=== PATIENT | male | born 1935 | race African-American/Black ===

== ENCOUNTER → 2019-06-01 | Outpatient (CLI) | payer MEDICARE ==
[~2019-06-01] MED LIST: IOPAMIDOL 370 MG/ML 200 ML INFUS..BTL INJ ONE; SODIUM CHLORIDE 0.9% 50ML 50 ML ONE
[2019-06-01 11:31] LABS: BLOOD UREA NITROGEN 18 mg/dL (7-26); BUN/CREATININE RATIO 20 (6-25); CREATININE, SERUM 0.92 mg/dL (0.72-1.25); EST GLOMERULAR FILTRATION RATE > 60 ML/MIN (60-)
--- NOTE | 2019-06-01 13:33 | Diagnostic Imaging Report ---
EXAM: CT Pelvis WITH contrast INDICATION: ^[id number] ^1225 ^MALIGNANT NEOPLASM OF PROSTATE COMPARISON: None. TECHNIQUE: Pelvis were scanned utilizing a multidetector helical scanner from the iliac crest to the pubic symphysis after administration of IV contrast. Coronal and sagittal reformations were obtained. Routine protocol was performed. Scan was performed when during portal venous phase. IV CONTRAST: 150 mL of Omnipaque 300 ORAL CONTRAST: Water COMPLICATIONS: None RADIATION DOSE: Total DLP: 408 mGy*cm Estimated effective dose: (DLP x 0.015 x size factor) mSv CTDIvol has been reviewed. It is below the limits set by the Radiation Protocol Committee (RPC). Dose modulation, iterative reconstruction, and/or weight based adjustment of the mA/kV was utilized to reduce the radiation dose to as low as reasonably achievable. FINDINGS: LINES and TUBES: None. GI TRACT: No abnormal distention, wall thickening, or evidence of bowel obstruction. Mild sigmoid diverticulosis. Appendix is normal. PELVIC ORGANS/BLADDER: The prostate gland is mildly enlarged and contains dystrophic calcifications. No identifiable prostate mass. The urinary bladder is unremarkable. LYMPH NODES: No lymphadenopathy. VESSELS: There is mild atherosclerotic disease in the aorta and major arterial branches. PERITONEUM / RETROPERITONEUM: No free air or fluid. BONES: Unremarkable. No lytic or blastic lesion. SOFT TISSUES: Unremarkable. IMPRESSION: 1. Mildly enlarged heterogeneous appearance of the prostate gland. No identifiable prostate mass. 2. No specific evidence of metastatic disease within the pelvis. Signed by: Anam Gomes MD on 06/01/2019 1:31 PM
--- NOTE | 2019-06-01 18:28 | Diagnostic Imaging Report ---
Bone Scan, delayed phase INDICATION: C61: Malignant neoplasm of prostate. Prostate cancer 10 years ago, now with persistent back pain. COMPARISON: CT pelvis 06/01/2019 REPORT: Approximately 3 hours following intravenous administration of 27.5 mCi of Tc-99m MDP, delayed total body images in the anterior and posterior projections and selected spot images were obtained. Degenerative changes are noted in the lower cervical and thoracic spine as well as in the shoulders, hips and knees. Foci of more markedly increased tracer activity are seen in L4 and L5 on the right. Otherwise, distribution of tracer activity is unremarkable throughout the skeletal system. No abnormal accumulation of tracer is seen in the soft tissues or urinary tract. IMPRESSION: 1. 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 2. No scan evidence of metastatic bone disease. Signed by: Dr. Charmaine Khan M.D. on 06/01/2019 6:26 PM
== END ==
LOC: NM 10:15
PROVIDERS: ATTEND Urology
DX: C61 Malignant neoplasm of prostate (principal); R97.20 Elevated prostate specific antigen [PSA]
CPT/HCPCS: 36415; 72193; 78306; 82565; 84520; A9503; Q9967